=== PATIENT | male | born 1975 | race Caucasian/White ===

== ENCOUNTER → 2021-08-27 | Outpatient (CLI) | payer OTHER ==
--- NOTE | 2021-08-27 14:56 | RAD ---
EXAM: Right ankle, 3 views; right tibia and fibula, 2 views; right foot, 3 views. HISTORY: Pain. COMPARISON: None. FINDINGS: 2 views of the right tibia and fibula and 3 views of the right foot and ankle are obtained. There is no acute fracture, dislocation or subluxation. The ankle mortise is intact. There is no ost eochondral lesion. There is lateral ankle soft tissue swelling. There is a small benign bone island w ithin the distal tibia. IMPRESSION: 1. No acute osseous finding. 2. Lateral ankle soft tissue swelling. Electronically signed by: Maureen Sun MD (08/27/2021 2:54 PM) [id number]
== END ==
LOC: RAD 14:03
PROVIDERS: ATTEND Nurse Practitioner Family
DX: S99.921A Unspecified injury of right foot, initial encounter (principal); M79.89 Other specified soft tissue disorders; X58.XXXA Exposure to other specified factors, initial encounter; Y93.89 Activity, other specified; Y92.89 Other specified places as the place of occurrence of the external cause; Y99.8 Other external cause status
CPT/HCPCS: 73590; 73610; 73630